=== PATIENT | female | born 1955 | race Caucasian/White ===

== ENCOUNTER 2018-01-04 00:32 | Emergency (ER) | payer BC, OTHER ==
[~2018-01-04] VITALS: Ht 165.1 cm; Wt 77.2 kg
[2018-01-04 00:38] VITALS: BP 159/95
--- NOTE | 2018-01-04 00:45 | NUR ---
Pt presents to ED with family from home c/o palpitations and dizziness. Pt denies chest pain, sob, dypnea, n/v/d. A&Ox4. VSS. Pt in bed positioned for comfort. ER MD aware. Continue to monitor.
--- NOTE | 2018-01-04 00:48 | NUR ---
PT TAKEN TO BED 11
--- NOTE | 2018-01-04 01:05 | NUR ---
Dr. Baird evaluating patient at bedside.
--- NOTE | 2018-01-04 01:20 | NUR ---
X-Ray at bedside.
[2018-01-04 01:40] LABS: HEMOGLOBIN 14.3 g/dL (12.0-16.0)
[2018-01-04 01:45] LABS: HEMATOCRIT 42.7 % (36-48); MEAN CORPUSCULAR HEMOGLOBIN 31 pg (27-31); MEAN CORPUSCULAR HGB CONC 34 g/dL (33-37); MEAN CORPUSCULAR VOLUME 91 fL (80-94); PLATELET COUNT (AUTO) 186 K/uL (140-450); RED CELL DISTRIBUTION WIDTH 12.6 % (11.6-13.7); WHITE BLOOD COUNT (AUTO) 11.5 K/uL (4.8-10.8)
[2018-01-04 01:55] LABS: ALBUMIN 3.6 g/dL (3.4-5.0); ANION GAP 12.4 (8-16); CARBON DIOXIDE 28.2 mmol/L (21-32); CREATININE 0.9 mg/dL (0.6-1.3); POTASSIUM 3.6 mmol/L (3.5-5.1); TOTAL BILIRUBIN 0.3 mg/dL (0.0-1.0)
[2018-01-04 01:59] LABS: LYMPHOCYTES % (MANUAL) 36 % (20-46); MONOCYTES % (MANUAL) 4 % (5-12)
[2018-01-04 02:06] LABS: CREATINE KINASE MB 0.9 ng/mL (0-3.6)
[2018-01-04 02:46] LABS: APPEARANCE,URINE CLEAR (CLEAR); BILIRUBIN,URINE NEGATIVE (NEGATIVE); BLOOD, URINE NEGATIVE (NEGATIVE); COLOR,URINE YELLOW (YELLOW); LEUKOCYTE ESTERASE ,URINE 1+ (NEGATIVE); NITRITE, URINE NEGATIVE (NEGATIVE); PH,URINE 5.5 (5.0-9.0); UGLUCOSE NEGATIVE (NEGATIVE)
--- NOTE | 2018-01-04 02:52 | NUR ---
Pt in bed positioned for comfort. VSS. ER MD aware. Continue to monitor.
[2018-01-04 03:03] LABS: RBC,URINE 0-5 (RARE) /HPF (0-5); WBC,URINE 0-5 (RARE) /HPF (0-5)
[2018-01-04 03:21] VITALS: BP 159/95
--- NOTE | 2018-01-04 03:21 | NUR ---
Patient discharged with v/s stable, no dizzines, and no palpatations. Written and verbal after care instructions given and explained. Patient alert, oriented and verbalized understanding of instructions. Ambulatory with steady gait. All questions addressed prior to discharge. ID band removed. Patient advised to follow up with PMD. Rx of Macrobid given. Patient educated on indication of medication including possible reaction and side effects. Opportunity to ask questions provided and answered.
== END 2018-01-04 03:21 | disposition home or self-care (01) ==
LOC: MED 00:32
DX: N39.0 Urinary tract infection, site not specified (principal); R53.1 Weakness; E11.9 Type 2 diabetes mellitus without complications; I10 Essential (primary) hypertension; Z90.49 Acquired absence of other specified parts of digestive tract
CPT/HCPCS: 36415; 71045; 80053; 81001; 82550; 82553; 84484; 85025; 87086; 93005; 99285